=== PATIENT | female | born 1935 | race American Indian/Alaskan Native ===

== ENCOUNTER → 2018-01-21 07:00 | Outpatient (CLI) | payer MEDICARE, OTHER, SELFPAY ==
[2018-01-21 08:06] LABS: Alanine Aminotransferase 37 IU/L (9-52); Albumin 4.3 g/dL (3.5-5.0); Albumin Globulin Ratio 1.1 (1.0-2.8); Alkaline Phosphatase 65 U/L (38-126); Aspartate Aminotransferase 41 IU/L (14-36); Bilirubin Total 0.5 mg/dL (0.2-1.3); Blood Urea Nitrogen 18 mg/dL (7-17); Calcium 9.5 mg/dL (8.4-10.2); Carbon Dioxide 30 mmol/L (22-32); Chloride 103 mmol/L (98-107); Cholesterol 216 mg/dL (140-199); Estimated Glomerular Filt Rate > 60.0 mL/min (>60); Globulin 3.9 g/dL (1.7-4.1); Glucose 94 mg/dL (80-110); HDL Cholesterol 80 mg/dL (40-60); HEMOLYSIS < 15 (0-50); LDL Cholesterol Calculated 112 mg/dL (<100); Potassium 4.6 mmol/L (3.4-5.1); Sodium 143 mmol/L (137-145); Total Protein 8.2 g/dL (6.3-8.2); Triglycerides 121 mg/dL (35-150)
== END ==
PROVIDERS: PCP Internal Medicine; Visit Provider Internal Medicine
DX: E78.2 Mixed hyperlipidemia (principal)
CPT/HCPCS: 36415; 80053; 80061

== ENCOUNTER → 2019-11-23 09:40 | Outpatient (CLI) | payer MEDICARE, OTHER, SELFPAY ==
[2019-11-23 11:36] LABS: Alanine Aminotransferase 83 IU/L (<35); Albumin 4.4 g/dL (3.5-5.0); Alkaline Phosphatase 96 U/L (38-126); Aspartate Aminotransferase 101 IU/L (14-36); BUN Creatinine Ratio 16.2 (6-22); Bilirubin Total 0.6 mg/dL (0.2-1.3); Blood Urea Nitrogen 22 mg/dL (7-17); Calcium 9.6 mg/dL (8.4-10.2); Carbon Dioxide 25 mmol/L (22-32); Chloride 105 mmol/L (98-107); Estimated Glomerular Filt Rate 37.2 mL/min (>60); Globulin 4.4 g/dL (1.7-4.1); Glucose 91 mg/dL (80-110); HEMOLYSIS < 15 (0-50); Potassium 4.8 mmol/L (3.4-5.1); Sodium 139 mmol/L (137-145); Total Protein 8.8 g/dL (6.3-8.2)
== END ==
PROVIDERS: PCP Internal Medicine; Referring Provider Internal Medicine; Visit Provider Internal Medicine
DX: E78.2 Mixed hyperlipidemia (principal); I10 Essential (primary) hypertension; R73.02 Impaired glucose tolerance (oral)
CPT/HCPCS: 36415; 80053

== ENCOUNTER → 2021-02-15 08:51 | Outpatient (CLI) | payer MEDICARE, OTHER, SELFPAY ==
[2021-02-15 10:03] LABS: Alanine Aminotransferase 90 IU/L (<35); Albumin 4.4 g/dL (3.5-5.0); Albumin Globulin Ratio 0.9 (1.0-2.8); Alkaline Phosphatase 92 U/L (38-126); Aspartate Aminotransferase 94 IU/L (14-36); BUN Creatinine Ratio 19.5 (6-22); Bilirubin Total 0.6 mg/dL (0.2-1.3); Blood Urea Nitrogen 25 mg/dL (7-17); Calcium 9.5 mg/dL (8.4-10.2); Carbon Dioxide 25 mmol/L (22-32); Chloride 106 mmol/L (98-107); Cholesterol 197 mg/dL (140-199); Estimated Glomerular Filt Rate 39.8 mL/min (>60); Globulin 4.8 g/dL (1.7-4.1); Glucose 89 mg/dL (80-110); HDL Cholesterol 59 mg/dL (40-60); HEMOLYSIS < 15 (0-50); LDL Cholesterol Calculated 115 mg/dL (<100); Potassium 4.7 mmol/L (3.4-5.1); Sodium 139 mmol/L (137-145); Total Protein 9.2 g/dL (6.3-8.2); Triglycerides 114 mg/dL (35-150)
== END ==
PROVIDERS: PCP Internal Medicine; Referring Provider Internal Medicine; Visit Provider Internal Medicine
DX: E78.2 Mixed hyperlipidemia (principal); I10 Essential (primary) hypertension; N18.31 Chronic kidney disease, stage 3a
CPT/HCPCS: 36415; 80053; 80061

== ENCOUNTER 2022-02-18 19:20 | Emergency (ER) | payer MEDICARE, OTHER, SELFPAY ==
[2022-02-18 19:30] VITALS: PULSE 97; RESP 18; TEMP 36.5; O2SAT 95; BMI 29.0
--- NOTE | 2022-02-18 19:38 | DI.RAD.S_ITS ---
PROCEDURE: XR CHEST 1V INDICATIONS: chest pain TECHNIQUE: One view of the chest was acquired. COMPARISON: [facility], , CHEST 2 VIEW, 05/30/2008, 9:54. FINDINGS: Surgical changes and devices: None. Lungs and pleura: Lungs are clear. No pleural effusions or pneumothorax. Mediastinum: Mediastinal contours appear normal. Heart size is normal. Moderate aortic atherosclerotic calcifications. Probable bilateral calcified hilar lymph nodes are noted, unchanged. Bones and chest wall: No suspicious bony lesions. Overlying soft tissues appear unremarkable. IMPRESSION: No acute cardiopulmonary abnormality. Dictated by: Jaiden Kelly M.D. on 02/18/2022 at 20:05 Approved by: Jaiden Kelly M.D. on 02/18/2022 at 20:06
[2022-02-18 20:13] LABS: Add Manual Diff / Slide Review NO; Basophils Absolute Auto 100 /uL (0-100); Eosinophils Absolute Auto 300 /uL (0-450); Eosinophils Percent Auto 5.9 % (2-4); Hematocrit 39.2 % (36-46); Hemoglobin 13.1 g/dL (12.0-16.0); Lymphocytes Absolute Auto 1500 /uL (1100-4500); Lymphocytes Percent Auto 29.3 % (25-40); Mean Corpuscular HGB Conc 33.5 % (30-36); Mean Corpuscular Hemoglobin 28.2 PG (26-34); Mean Corpuscular Volume 84.3 fL (80-100); Monocytes Absolute Auto 600 /uL (0-900); Monocytes Percent Auto 12.2 % (3-14); Neutrophils Absolute Auto 2600 /uL (1500-7000); Neutrophils Percent Auto 51.6 % (50-75); Platelet Count 268 X10^3/uL (150-400); Red Blood Cell Count 4.65 X10^6/uL (4.0-5.2); Red Cell Distribution Width 14.7 % (11.6-14.8); White Blood Cell Count 5.1 X10^3/uL (4.5-11.0)
[2022-02-18 20:31] LABS: Alanine Aminotransferase 84 IU/L (<35); Albumin 4.3 g/dL (3.5-5.0); Albumin Globulin Ratio 0.8 (1.0-2.8); Alkaline Phosphatase 87 U/L (38-126); Aspartate Aminotransferase 111 IU/L (14-36); BUN Creatinine Ratio 21.1 (6-22); Bilirubin Total 0.4 mg/dL (0.2-1.3); Blood Urea Nitrogen 20 mg/dL (7-17); Calcium 9.1 mg/dL (8.4-10.2); Carbon Dioxide 25 mmol/L (22-32); Chloride 103 mmol/L (98-107); Creatine Kinase 57 U/L (30-135); Estimated Glomerular Filt Rate 59 mL/min (>60); Globulin 5.3 g/dL (1.7-4.1); Glucose 93 mg/dL (80-110); HEMOLYSIS < 15 (0-50); Lipase 273 U/L (23-300); Magnesium 2.6 mg/dL (1.6-2.3); Potassium 3.8 mmol/L (3.4-5.1); Sodium 139 mmol/L (137-145); Total Protein 9.6 g/dL (6.3-8.2)
[2022-02-18 20:41] LABS: Troponin I < 0.012 ng/mL (0.01-0.034)
[2022-02-18 22:06] LABS: Troponin I 0.015 ng/mL (0.01-0.034)
== END 2022-02-18 22:50 | disposition left against medical advice (07) ==
PROVIDERS: Emergency Provider Emergency Medicine; PCP Internal Medicine
DX: R07.9 Chest pain, unspecified (principal)
CPT/HCPCS: 71045; 80053; 82550; 83690; 83735; 84484; 85025; 93005; 93010; 99283

== ENCOUNTER → 2022-03-24 12:41 | Outpatient (CLI) | payer MEDICARE, OTHER, SELFPAY ==
[2022-03-24 13:47] LABS: COVID19 -Nasal RAPID Negative (Negative)
--- NOTE | 2022-03-24 14:19 | PM.TREADMILL ---
Cardiac Stress Test Report Referral & Results Date Patient Seen: 03/24/22 Requesting provider: Ezequiel Valdez Indication: Chest pain Rest ECG: Unremarkable Procedure Note: Today following both written and verbal informed consent, the patient was exercised according to a standard Santos protocol. The patient exercised for a total of 3 minutes achieving a maximum heart rate of 134. Patient's maximum systolic blood pressure was 188. This was an estimated 4.6 MET's. There was no ST-T segment changes identified Patient with occasional PVCs. Normal heart rate and blood pressure response to exercise Function aerobic impairment difficult to be accurate given patient's age but appears to be at least 0 on the sedentary scale perhaps better than that Impression: No evidence of ischemia. Patient reassured. Low likelihood of cardiac disease based on clinical picture prior to test as well meaning this is unlikely to be situation with any coronary ischemia as a cause of patient's symptoms. Please note: Actual ECG tracings can be found in the PACS system.
== END ==
PROVIDERS: PCP Internal Medicine; Referring Provider Internal Medicine; Visit Provider Internal Medicine
DX: R07.9 Chest pain, unspecified (principal); Z20.822 Contact with and (suspected) exposure to COVID-19
CPT/HCPCS: 87635; 93016; 93017; 93018

== ENCOUNTER → 2023-09-08 10:21 | Outpatient (CLI) | payer MEDICARE, OTHER, SELFPAY ==
[2023-09-08 10:52] LABS: Add Manual Diff / Slide Review NO; Basophils Absolute Auto 100 /uL (0-100); Basophils Percent Auto 1.1 % (0-2); Eosinophils Absolute Auto 200 /uL (0-450); Eosinophils Percent Auto 3.1 % (2-4); Hemoglobin 13.2 g/dL (12.0-16.0); Lymphocytes Absolute Auto 1100 /uL (1100-4500); Lymphocytes Percent Auto 19.9 % (25-40); Mean Corpuscular HGB Conc 33.8 % (30-36); Mean Corpuscular Hemoglobin 28.3 PG (26-34); Mean Corpuscular Volume 83.8 fL (80-100); Monocytes Absolute Auto 500 /uL (0-900); Monocytes Percent Auto 9.7 % (3-14); Neutrophils Absolute Auto 3600 /uL (1500-7000); Neutrophils Percent Auto 66.2 % (50-75); Platelet Count 273 X10^3/uL (150-400); Red Blood Cell Count 4.66 X10^6/uL (4.0-5.2); Red Cell Distribution Width 14.3 % (11.6-14.8); White Blood Cell Count 5.4 X10^3/uL (4.5-11.0)
[2023-09-08 11:22] LABS: Alanine Aminotransferase 52 IU/L (<35); Albumin 4.2 g/dL (3.5-5.0); Albumin Globulin Ratio 0.9 (1.0-2.8); Alkaline Phosphatase 95 U/L (38-126); Aspartate Aminotransferase 76 IU/L (14-36); Bilirubin Total 0.6 mg/dL (0.2-1.3); Blood Urea Nitrogen 26 mg/dL (7-17); Calcium 9.3 mg/dL (8.4-10.2); Carbon Dioxide 27 mmol/L (22-32); Chloride 102 mmol/L (98-107); Estimated Glomerular Filt Rate 40 mL/min (>60); Globulin 4.8 g/dL (1.7-4.1); Glucose 95 mg/dL (80-110); HEMOLYSIS < 15 (0-50); Potassium 4.9 mmol/L (3.4-5.1); Sodium 136 mmol/L (137-145)
== END ==
LOC: LAB 10:21
PROVIDERS: PCP Internal Medicine; Referring Provider Internal Medicine; Visit Provider Internal Medicine
DX: E78.2 Mixed hyperlipidemia (principal); N18.31 Chronic kidney disease, stage 3a; D64.9 Anemia, unspecified; I12.9 Hypertensive chronic kidney disease with stage 1 through stage 4 chronic kidney disease, or unspecified chronic kidney disease
CPT/HCPCS: 36415; 80053; 85025

== ENCOUNTER 2024-01-21 18:13 | Emergency (ER) | payer MEDICARE, OTHER, SELFPAY ==
[2024-01-21] VITALS (21 sets, daily range): BP systolic 139–190; BP diastolic 60–93; PULSE 83–119; RESP 18–34; TEMP 36.9; O2SAT 92–98; BMI 28.3
--- NOTE | 2024-01-21 18:39 | DI.CT.S_ITS ---
PROCEDURE: CT HEAD/BRAIN WO CON INDICATIONS: Fall hit head on blood thinners TECHNIQUE: Noncontrast 4.5 mm thick angled axial sections acquired from the foramen magnum to the vertex, with coronal and sagittal reformats. For radiation dose reduction, the following was used: automated exposure control, adjustment of mA and/or kV according to patient size. COMPARISON: None. FINDINGS: Image quality: Diagnostic. CSF spaces: Basal cisterns are patent. Small volume of right posterior subarachnoid blood (series 5, image 31). The ventricles are symmetric in size and shape. Brain: No intracranial bleeds or masses. There is cerebral volume loss for age, with resultant ventricular and sulcal prominence. There are periventricular and deep white matter chronic small vessel ischemic changes. There is intracranial internal carotid artery atherosclerosis. Skull and face: Large periorbital hematoma on the left, without underlying fracture. No retro-orbital hematoma. Sinuses: Visualized sinuses and mastoids are clear. IMPRESSION: Small volume subarachnoid hemorrhage along the posterior right convexity. Large left periorbital hematoma without underlying fracture. Findings discussed with Dr. Oden at time of dictation. Dictated by: Talon Bain M.D. on 01/21/2024 at 19:20 Approved by: Talon aBin M.D. on 01/21/2024 at 19:22
--- NOTE | 2024-01-21 18:39 | DI.CT.S_ITS ---
PROCEDURE: CT CERVICAL SPINE WO CON INDICATIONS: Fall hit head on blood thinners TECHNIQUE: Noncontrast 3 mm thick sections acquired from the skull base to the T4 level. Sagittal and coronal reformats were then constructed. For radiation dose reduction, the following was used: automated exposure control, adjustment of mA and/or kV according to patient size. COMPARISON: None. FINDINGS: Image quality: Excellent. Bones: No fractures or dislocations. Visualized superior ribs are intact. Soft tissues: Prevertebral soft tissues are normal in thickness. No paravertebral hematomas. No apical pneumothoraces. 1 cm left thyroid nodule, which does not require dedicated follow-up per consensus guidelines. IMPRESSION: No displaced fracture or traumatic subluxation. Dictated by: Talon Bain M.D. on 01/21/2024 at 19:22 Approved by: Talon Bain M.D. on 01/21/2024 at 19:24
--- NOTE | 2024-01-21 19:51 | ED_ITS ---
HPI - Fall General Chief Complaint: Fall Stated Complaint: Fall, hit head, blood thinners Time Seen by Provider: 01/21/24 18:38 Source: patient Mode of arrival: Ambulatory History of Present Illness HPI Narrative: Patient is an 88-year-old female. The initial stated complaint stated that she was on blood thinners however upon further evaluation the patient is only on aspirin. She was here for evaluation of injuries that she sustained when she states she was out for a walk with her daughter and their dog. She states that she was walking down an alley way. She was trying to cross the alleyway and accidentally tripped over a grassy area in the center of the alley. She fell forward. She did hit her head. No loss of consciousness. No neck pain. She did sustain some abrasions over the left eye. She did hit her head. No extr emity injuries. She arrived by private vehicle. Related Data Home Medications Medication Instructions Recorded Confirmed aspirin 81 mg tablet,delayed 81 mg PO DAILY 05/26/22 09/08/23 release Previous Rx's Medication Instructions Recorded nifedipine 60 mg tablet,extended 60 mg PO DAILY #90 tabs 07/27/23 release simvastatin 20 mg tablet 20 mg PO DAILY #90 tabs 08/11/23 Allergies Allergy/AdvReac Type Severity Reaction Status Date / Time iodine Allergy Unknown Rash Verified 09/08/23 09:56 Review of Systems Review of Systems Narrative: See HPI Patient History Medical History Transaminitis Chronic renal failure, stage 3a Mixed hyperlipidemia (01/10/16) Chronic obstructive pulmonary disease Essential hypertension Diverticulosis of large intestine (06/13/11) Impaired glucose tolerance (06/13/11) Surgical History (Updated 01/25/18 @ 13:21 by Shaina Conner) History of left salpingo-oophorectomy History of right salpingo-oophorectomy Status post appendectomy Family History (Updated 01/25/18 @ 13:23 by Shaina Conner) Other Colon cancer Social History marital status: number of children: 5 household members: children lives independently: Yes caregiver/support person: No housing: house pets and animals: Yes education level: college occupational status: other (Retired.) Previous occupational history: Mental Health Counselor tk/orthodox: [employer] travel history: over 6 months ago ([place]) leisure activities: reading, volunteer work and other (Speaks at classes.) Smoking Status: Former smoker Tobacco: How many years used: 25 Smokeless tobacco user: other (Cigarettes) quit status: quit date established (1979) second hand exposure: No alcohol intake: former (Quit in 1985, but now has 2 beers daily) substance use type: does not use Smoking Status: Former smoker alcohol intake frequency: 3 or more drinks per day Substance Use Type: does not use Exam Initial Vital Signs Initial Vital Signs: Vital Signs Pulse Rate 93 H 01/21/24 18:26 Pulse Oximetry 97 01/21/24 18:26 Const General: cooperative, comfortable and No ill appearing HENMT Head: normal to inspection and normocephalic Eyes Periorbital: periorbital findings abnormal left periorbital swelling and periorbital ecchymosis Sclera: sclerae normal Pupils: PERRL EOM: EOM intact bilaterally Resp Effort & Inspection: normal respiratory effort Cardio Rate: regular rate Back/Spine/Pelvis Cervical Spine: No cervical spinal tenderness Skin Other: Contusion around left eye Neuro General: patient alert, patient awake and patient oriented x3 Extrem General: normal to inspection and capillary refill normal Scores Iraqi CT Head Rule Age <16 years old: No Patient on blood thinners: No Seizure after injury: No Exclusion: Patient NOT Excluded, Proceed to next steps GCS < 15 at 2 hr post trauma: No Suspected open or depressed skull fracture: No Any sign of basilar skull fracture (hemotympanum, raccoon eyes, Rollins's sign, CSF john-/rhinorrhea): No Two or more episodes of vomiting: No Age greater or equal to 65 years: Yes Retrograde amnesia to the event greater or equal to 30 min: No Dangerous Mechanism (pedestrian vs. mv, occupant ejected from mv, fall from >3 ft or > 5 stairs): No Recommendation: Consider CT. The Iraqi Head CT Rule cannot rule out need for Imaging. GCS [place] coma scale eye opening: Spontaneous Kristi coma scale verbal response: Orientated [place] coma scale motor response: Obey commands Kristi coma scale total score: 15 Nexus Score for C-Spine Focal Neurologic deficit present: No Midline spinal tenderness present: No Altered level of conciousness present: No Intoxication present: No Distracting Injury Present: No Nexus Criteria for C-spine: 0 Course Orders Ordered: ED Orders 01/21/24 18:39 CT cervical spine wo con Stat CT head/brain wo con Stat 01/21/24 22:45 CT head/brain wo con Stat Vital Signs Vital signs: Vital Signs - 8 hr 01/21/24 18:26 01/21/24 18:27 01/21/24 18:27 Temperature Pulse Rate 93 H 89 Respiratory Rate Blood Pressure 177/80 H Pulse Oximetry 97 97 Oxygen Delivery Method 01/21/24 18:28 01/21/24 18:30 01/21/24 18:31 Temperature 98.4 F Pulse Rate 83 93 H Respiratory Rate 18 29 H Blood Pressure 177/80 H 165/93 H Pulse Oximetry 96 97 Oxygen Delivery Method Room Air 01/21/24 18:31 01/21/24 19:02 01/21/24 19:03 Temperature Pulse Rate 95 H 99 H 98 H Respiratory Rate 27 H 25 H 18 Blood Pressure Pulse Oximetry 97 92 97 Oxygen Delivery Method 01/21/24 19:03 01/21/24 19:30 01/21/24 19:31 Temperature Pulse Rate 93 H Respiratory Rate 25 H Blood Pressure 190/78 H 179/80 H Pulse Oximetry 96 Oxygen Delivery Method 01/21/24 19:31 01/21/24 19:59 01/21/24 19:59 Temperature Pulse Rate 95 H 119 H Respiratory Rate 28 H 21 Blood Pressure 139/60 Pulse Oximetry 97 97 Oxygen Delivery Method Room Air 01/21/24 20:00 01/21/24 20:00 01/21/24 20:30 Temperature Pulse Rate 113 H 97 H Respiratory Rate 22 29 H Blood Pressure 171/78 H Pulse Oximetry 98 98 Oxygen Delivery Method 01/21/24 20:31 01/21/24 20:31 01/21/24 21:00 Temperature Pulse Rate 98 H 94 H Respiratory Rate 34 H 21 Blood Pressure 159/77 H Pulse Oximetry 98 97 Oxygen Delivery Method 01/21/24 21:00 01/21/24 21:30 01/21/24 21:39 Temperature Pulse Rate 96 H 94 H Respiratory Rate 32 H 19 Blood Pressure 178/77 H Pulse Oximetry 98 98 Oxygen Delivery Method Room Air 01/21/24 21:39 01/21/24 22:00 01/21/24 22:01 Temperature Pulse Rate 88 Respiratory Rate 26 H Blood Pressure 183/75 H 166/74 H Pulse Oximetry 97 Oxygen Delivery Method 01/21/24 22:01 01/21/24 22:30 01/21/24 22:30 Temperature Pulse Rate 89 87 Respiratory Rate 22 22 Blood Pressure 177/78 H Pulse Oximetry 96 96 Oxygen Delivery Method 01/21/24 22:53 01/21/24 22:53 01/21/24 23:00 Temperature Pulse Rate 89 Respiratory Rate 31 H Blood Pressure 181/76 H 175/79 H Pulse Oximetry 97 Oxygen Delivery Method 01/21/24 23:00 Temperature Pulse Rate 91 H Respiratory Rate 22 Blood Pressure Pulse Oximetry 98 Oxygen Delivery Method Room Air MDM - Fall Imaging Data CT - cervical spine: Radiologist's Impression: PROCEDURE: CT CERVICAL SPINE WO CON INDICATIONS: Fall hit head on blood thinners TECHNIQUE: Noncontrast 3 mm thick sections acquired from the skull base to the T4 level. Sagittal and coronal reformats were then constructed. For radiation dose reduction, the following was used: automated exposure control, adjustment of mA and/or kV according to patient size. COMPARISON: None. FINDINGS: Image quality: Excellent. Bones: No fractures or dislocations. Visualized superior ribs are intact. Soft tissues: Prevertebral soft tissues are normal in thickness. No paravertebral hematomas. No apical pneumothoraces. 1 cm left thyroid nodule, which does not require dedicated follow-up per consensus guidelines. IMPRESSION: No displaced fracture or traumatic subluxation. CT scan - head: Radiologist's Impression: PROCEDURE: CT HEAD/BRAIN WO CON INDICATIONS: Fall hit head on blood thinners TECHNIQUE: Noncontrast 4.5 mm thick angled axial sections acquired from the foramen magnum to the vertex, with coronal and sagittal reformats. For radiation dose reduction, the following was used: automated exposure control, adjustment of mA and/or kV according to patient size. COMPARISON: None. FINDINGS: Image quality: Diagnostic. CSF spaces: Basal cisterns are patent. Small volume of right posterior subarachnoid blood (series 5, image 31). The ventricles are symmetric in size and shape. Brain: No intracranial bleeds or masses. There is cerebral volume loss for age, with resultant ventricular and sulcal prominence. There are periventricular and deep white matter chronic small vessel ischemic changes. There is intracranial internal carotid artery atherosclerosis. Skull and face: Large periorbital hematoma on the left, without underlying fracture. No retro-orbital hematoma. Sinuses: Visualized sinuses and mastoids are clear. IMPRESSION: Small volume subarachnoid hemorrhage along the posterior right convexity. Large left periorbital hematoma without underlying fracture. Findings discussed with Dr. Oden at time of dictation. Repeat head CT: Radiologist's Impression: PROCEDURE: CT HEAD/BRAIN WO CON INDICATIONS: Repeat for subarachnoid hemorrhage TECHNIQUE: Noncontrast 4.5 mm thick angled axial sections acquired from the foramen magnum to the vertex, with coronal and sagittal reformats. For radiation dose reduction, the following was used: automated exposure control, adjustment of mA and/or kV according to patient size. COMPARISON: [facility], CT, CT HEAD/BRAIN WO CON, 01/21/2024, 18:43. FINDINGS: Image quality: Diagnostic. CSF spaces: Basal cis high [place] is of prior ago carotid angiogram anterior a graph again by sophia are patent. No extra-axial fluid collections. The ventricles are symmetric in size and shape. Brain: Redemonstration of small volume subarachnoid hemorrhage involving the right posterior occipital lobe. No significant interval change. There is cerebral volume loss for age, with resultant ventricular and sulcal prominence. There are periventricular and deep white matter chronic small vessel ischemic changes. There is intracranial internal carotid artery atherosclerosis. Skull and face: Redemonstration of large left periorbital soft tissue hematoma without underlying calvarial fractures. Calvarium and visualized facial bones appear intact, without suspicious lesions. Sinuses: Visualized sinuses and mastoids are clear. IMPRESSION: Stable appearance of small volume subarachnoid hemorrhage of the posterior right convexity. Redemonstration of large left periorbital hematoma without underlying calvarial fracture. [facility] Narrative Medical decision making narrative: Patient does have a contusion around the left eye however on the CT scan there were no underlying fractures. Extraocular muscles were intact and pupils were equal round and reactive. I did discuss these findings with the patient. Symptoms should start to improve over the next couple days however would suspect quite a bit of swelling around her eye. Initial head CT showed a small volume subarachnoid hemorrhage most likely from the fall which brought her to the emergency department this evening. Discussed the case with Neurosurgery at [facility] who recommended a repeat head CT in 4 hours which was performed. There was no change in the subarachnoid. Because of this patient will be discharged home with instructions to follow-up with her primary doctor. She was advised to stop taking the aspirin. She reports no other injuries from the event and no other injuries were found on the exam. She was given return precautions and follow-up instructions. She expressed understanding and agreement. Discharge Plan Departure Patient Disposition: Home Clinical Impression: Subarachnoid hemorrhage, Contusion of face Instructions: DI for Stroke-Subarachnoid Hemorrhage Activity Restrictions/Additional Instructions: I do recommend that you stop taking your aspirin. You can continue taking the rest of your medications as directed. Contact your primary doctor for a follow- up. Return to the emergency department for new or worsening symptoms. Prescriptions: No Action nifedipine 60 mg tablet extended release 60 mg PO DAILY Qty: 90 3RF simvastatin 20 mg tablet 20 mg PO DAILY Qty: 90 2RF aspirin 81 mg tablet,delayed release (DR/EC) 81 mg PO DAILY Referrals: Ezequiel Valdez MD [Primary Care Provider] - Stand Alone Forms: Patient Portal/API
--- NOTE | 2024-01-21 22:45 | DI.CT.S_ITS ---
PROCEDURE: CT HEAD/BRAIN WO CON INDICATIONS: Repeat for subarachnoid hemorrhage TECHNIQUE: Noncontrast 4.5 mm thick angled axial sections acquired from the foramen magnum to the vertex, with coronal and sagittal reformats. For radiation dose reduction, the following was used: automated exposure control, adjustment of mA and/or kV according to patient size. COMPARISON: [facility], CT, CT HEAD/BRAIN WO CON, 01/21/2024, 18:43. FINDINGS: Image quality: Diagnostic. CSF spaces: Basal cis high [place] is of prior ago carotid angiogram anterior a graph again by sophia are patent. No extra-axial fluid collections. The ventricles are symmetric in size and shape. Brain: Redemonstration of small volume subarachnoid hemorrhage involving the right posterior occipital lobe. No significant interval change. There is cerebral volume loss for age, with resultant ventricular and sulcal prominence. There are periventricular and deep white matter chronic small vessel ischemic changes. There is intracranial internal carotid artery atherosclerosis. Skull and face: Redemonstration of large left periorbital soft tissue hematoma without underlying calvarial fractures. Calvarium and visualized facial bones appear intact, without suspicious lesions. Sinuses: Visualized sinuses and mastoids are clear. IMPRESSION: Stable appearance of small volume subarachnoid hemorrhage of the posterior right convexity. Redemonstration of large left periorbital hematoma without underlying calvarial fracture. Dictated by: Maximo Downs M.D. on 01/21/2024 at 23:07 Approved by: Maximo Downs M.D. on 01/21/2024 at 23:11
== END 2024-01-21 23:39 | disposition home or self-care (01) ==
PROVIDERS: Emergency Provider Emergency Medicine; PCP Internal Medicine
DX: S06.6X0A Traumatic subarachnoid hemorrhage without loss of consciousness, initial encounter (principal); S00.83XA Contusion of other part of head, initial encounter; W01.0XXA Fall on same level from slipping, tripping and stumbling without subsequent striking against object, initial encounter; Z79.82 Long term (current) use of aspirin
CPT/HCPCS: 70450; 72125; 99281; 99284

== ENCOUNTER → 2024-01-28 09:13 | Outpatient (CLI) | payer MEDICARE, OTHER, SELFPAY ==
--- NOTE | 2024-01-28 09:15 | DI.ECHO.S_ITS ---
[place] [facility] : : [address] : : [place] : : [id number] : : Phone: [phone] Echocardiogram Report + + :Name: EMY KOENIG I Study Date: 01/28/2024 Height: 59 in : :[facility] ReadingLocation: Weight: 128 lb : : Gender: Female BSA: 1.5 m2 : :: 1935 Age: 88 yrs BP: 155/69 mmHg: :Reason For Study: Murmur : :Ordering Physician: MARCELA, : :PHUC Performed By: Maxine Scott : :Referring: PHUC MEDRANO : + + Interpretation Summary Normal sinus rhythm. Normal LV size and wall thickness; normal wall motion and LV systolic function. EF is 60-65%. Severe LA enlargement; otherwise normal chamber sizes. 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 Left coronary leaflet demonstrates adequate mobility. Severe mitral annular calcification. No prior study available for comparison. Recommend non-urgent cardiology consult to discuss prognosis of moderate aortic stenosis. Procedure: A two-dimensional transthoracic echocardiogram with color flow and Doppler was performed. The study quality was technically adequate. There is no prior echocardiogram noted for this patient. The heart rate ranged between 75-80 bpm during the study. Left Ventricle: The left ventricle is normal in size and wall thickness. The ejection fraction is estimated to be 60-65%. Diastolic function could not be accurately assessed due to confounding valvular disease. Right Ventricle: The right ventricle grossly appears normal in size with probable normal systolic function. Atria: The left atrium is severely dilated. Right atrial size is normal. The interatrial septum grossly appears intact with no obvious evidence for an atrial septal defect. Mitral Valve: The mitral valve leaflets appear moderately thickened, but open well. There is moderate to severe mitral annular calcification. There is no mitral regurgitation noted. Aortic Valve: The aortic valve is moderately calcified. The aortic valve area is 1.0 centimeters squared by planimetry. The calculated aortic valve area is 1.0 cm2. The peak aortic velocity is 3.4 m/sec. The aortic valve mean gradient is 27 mmHg. No aortic regurgitation is present. Tricuspid Valve: The tricuspid valve leaflets are thickened and/or calcified, but open well. There is mild tricuspid regurgitation. The right ventricular systolic pressure is estimated to be at least 38 mmHg based on an estimated right atrial pressure of 3 mm Hg. Pulmonic Valve: The pulmonic valve is not well seen, but is grossly normal. There is no pulmonic valvular regurgitation. Great Vessels: The aortic root is normal size. The ascending aorta could not be visualized. The aortic arch is normal in size. The IVC is of normal diameter and collapses greater than 50% with a sniff. This suggests a low right atrial pressure of 3 mm Hg. Pericardium/ Pleura There is no pericardial effusion. There is no pleural effusion. MMode/2D Measurements & Calculations LVIDd: 4.6 cm LVOT diam: 1.9 cm LVIDs: 2.1 cm Ao root diam: 3.1 cm FS: 53.7 % Ao Arch Diam (Prox Trans): 2.3 cm EPSS: 0.52 cm IVSd: 1.1 cm LVPWd: 0.80 cm LV lai. diameter/BSA (cm/m^2): 3.0 LV sys. diameter/BSA (cm/m^2): 1.4 LA A2 area: 22.6 cm2 RA long axis: 5.0 cm LA A4 area: 23.8 cm2 RA area: 13.2 cm2 LA length (vol): 5.8 cm RA vol: 29.4 ml LA vol: 78.3 ml RA : 19.3 ml/m2 LA vol index: 51.3 ml/m2 IVC diam: 1.5 cm Doppler Measurements & Calculations Ao V2 max: 340.4 cm/sec LVOT Max Daniel: 101.4 cm/sec Ao V2 mean: 244.6 cm/sec LV V1 max P.1 mmHg Ao max P.3 mmHg LV V1 VTI: 29.4 cm Ao mean P.3 mmHg JAILENE(I,D): 0.97 cm2 Ao V2 VTI: 81.9 cm JAILENE(V,D): 0.81 cm2 sev ratio: 0.36 JAILENE indexed to BSA (cm^2/m^2): 0.64 MV E max daniel: 95.4 cm/sec TR max daniel: 295.8 cm/sec MV A max daniel: 152.2 cm/sec TR max P.0 mmHg MV E/A: 0.63 PA V2 max: 98.9 cm/sec Med Peak E' Daniel: 2.8 cm/sec PA V2 mean: 59.6 cm/sec E/E' med: 33.8 PA mean P.8 mmHg Lat Peak E' Daniel: 2.9 cm/sec PA pr(Accel): 10.5 mmHg E/E' lat: 32.5 E/e' average: 33.1 MV dec time: 0.47 sec MVA(VTI): 2.1 cm2 MV V2 mean: 91.3 cm/sec SV(LVOT): 79.8 ml MV mean P.8 mmHg MV V2 VTI: 37.9 cm Electronically signed by: Raisa Lewis M.D. on Reading Physician:01/29/2024 12:52 AM
== END ==
PROVIDERS: PCP Internal Medicine; Referring Provider Family Medicine; Visit Provider Family Medicine
DX: I08.1 Rheumatic disorders of both mitral and tricuspid valves (principal); R01.1 Cardiac murmur, unspecified
CPT/HCPCS: 93306

== ENCOUNTER 2024-07-02 07:42 | Emergency (ER) | payer MEDICARE, SELFPAY ==
[2024-07-02 07:47] VITALS: BP 161/68; PULSE 93; RESP 18; TEMP 36.6; O2SAT 97; BMI 28.2
--- NOTE | 2024-07-02 07:56 | DI.RAD.S_ITS ---
PROCEDURE: XR ABDOMEN 1V INDICATIONS: abd pain and constipation TECHNIQUE: One view of the abdomen acquired. COMPARISON: None. FINDINGS: Surgical changes and devices: None. Bowel: Bowel gas pattern is normal. Large right colonic fecal load. No free air. Soft tissues: Multiple calcified gallstones. Advanced aorta iliac atherosclerotic calcifications. Visualized solid organ contours appear normal in size. Bones: No suspicious bony lesions. IMPRESSION: Normal bowel gas pattern with large right colonic fecal load. Dictated by: Addison Marti M.D. on 07/02/2024 at 8:25 Approved by: Addison Marti M.D. on 07/02/2024 at 8:26
== END 2024-07-02 11:18 | disposition left against medical advice (07) ==
PROVIDERS: Emergency Provider Emergency Medicine; PCP Internal Medicine
DX: R10.32 Left lower quadrant pain (principal)
CPT/HCPCS: 74018; 99281

== ENCOUNTER → 2024-08-01 15:17 | Outpatient (CLI) | payer MEDICARE, OTHER, SELFPAY ==
--- NOTE | 2024-08-01 15:24 | DI.RAD.S_ITS ---
PROCEDURE: XR CERVICAL SPINE 4V OR 5V INDICATIONS: BACK PAIN TECHNIQUE: Five views of the cervical spine acquired. COMPARISON: None. FINDINGS: Cervical spine curvature and alignment: Normal. Bones: There are no osseous abnormalities. Disc spaces: Mild C4-5, severe C5-6 and moderate C6-7 and mild C7-T1 degenerative disc disease appreciated. Oblique view show severe left C4-5 and right C3-4 and C4-5 IV foraminal narrowing due to degenerative spurs. Soft tissues: No soft tissue swelling, calcification or mass. IMPRESSION: Degeneration Dictated by: Ezequiel Rodriguez M.D. on 08/02/2024 at 9:22 Approved by: Ezequiel Rodriguez M.D. on 08/02/2024 at 9:23
--- NOTE | 2024-08-01 15:24 | DI.RAD.S_ITS ---
PROCEDURE: XR LUMBAR SPINE 2-3V INDICATIONS: BACK PAIN TECHNIQUE: 3 views of the lumbar spine were acquired. COMPARISON: None. FINDINGS: Lumbar spine curvature and alignment: Normal. Bones: Mild biconcavity of the visualized lower thoracic and upper lumbar endplates suggests osteoporosis. No brain compression fracture. Disc spaces: Moderate L5-S1 degenerative disc and facet disease noted. There is moderate degenerative facet disease L4-5. Soft tissues: Right upper quadrant calcifications are poorly visualized could indicate gallstones or right renal stones IMPRESSION: Degeneration. Potential gallstones or renal stones. Possible osteoporosis Dictated by: Ezequiel Rodriguez M.D. on 08/02/2024 at 9:16 Approved by: Ezequiel Rodriguez M.D. on 08/02/2024 at 9:18
--- NOTE | 2024-08-01 15:24 | DI.RAD.S_ITS ---
PROCEDURE: XR THORACIC SPINE 2V INDICATIONS: BACK PAIN TECHNIQUE: 3 views of the thoracic spine were acquired. COMPARISON: None. FINDINGS: Thoracic spine curvature and alignment: There is mild accentuation of the normal thoracic curve due to minimal chronic wedging of all the upper midthoracic vertebral bodies Bones: Mild wedging upper midthoracic vertebral bodies may reflect chronic osteoporosis Disc spaces: Mild degenerative disc disease seen throughout the thoracic spine Soft tissues: No soft tissue swelling, calcification or mass. IMPRESSION: Mild degenerative disc disease throughout the thoracic spine Mild chronic wedging upper midthoracic vertebral body suspect chronic osteoporosis Dictated by: Ezequiel Rodriguez M.D. on 08/02/2024 at 9:27 Approved by: Ezequiel Rodriguez M.D. on 08/02/2024 at 9:28
== END ==
PROVIDERS: PCP Internal Medicine; Referring Provider Family Medicine; Visit Provider Family Medicine
DX: M50.321 Other cervical disc degeneration at C4-C5 level (principal); M48.02 Spinal stenosis, cervical region; M51.34 Other intervertebral disc degeneration, thoracic region; M47.816 Spondylosis without myelopathy or radiculopathy, lumbar region; M47.817 Spondylosis without myelopathy or radiculopathy, lumbosacral region; M51.379 Other intervertebral disc degeneration, lumbosacral region without mention of lumbar back pain or lower extremity pain
CPT/HCPCS: 72050; 72070; 72100

== ENCOUNTER → 2024-08-26 09:44 | Outpatient (CLI) | payer MEDICARE, OTHER, SELFPAY ==
--- NOTE | 2024-08-26 09:46 | DI.CT.S_ITS ---
PROCEDURE: CT ABDOMEN PELVIS W CON INDICATIONS: MONOCLONAL GAMMOPATHY TECHNIQUE: After the administration of intravenous contrast, axial sections acquired from the lung bases to the pubic symphysis. Coronal and sagittal reformats were performed. For radiation dose reduction, the following was used: automated exposure control, adjustment of mA and/or kV according to patient size. COMPARISON: [facility], CR, XR ABDOMEN 1V, 07/02/2024, 7:53. FINDINGS: Image quality: Diagnostic. Lower Chest: No significant findings. ABDOMEN: Liver: No solid mass. Several water density hepatic cysts are present. Gallbladder: Calcified multiple angular gallstones are present within the gallbladder lumen but no biliary distension or gallbladder inflammation is associated. At the upper aspect of the gallbladder fossa there is a rounded radiolucency with faint peripheral calcification, of uncertain etiology and clinical significance. This could represent an unusual superior recess of the gallbladder containing a peripherally calcified large gallstone. It might represent a biliary ductal congenital anomaly, but no solid soft tissue component is identified. Biliary ducts: No biliary dilation. Pancreas: No ductal dilation. Spleen: Size is within normal limits. Adrenal Glands: No adrenal nodules. Kidneys and Ureters: No hydronephrosis. No solid mass. No complex renal cystic lesion which requires follow up. Stomach and Bowel: Normal colonic caliber, without significant wall thickening. Peritoneum: No abnormal intraperitoneal fluid. No free air. Ventral Wall: No significant ventral hernia. Abdominal Nodes: No retroperitoneal or mesenteric adenopathy by size criteria. Vessels: Aorta and inferior vena cava are normal in size. PELVIS: Pelvic Organs: Unremarkable. Bladder: No bladder wall thickening, accounting for underdistention. Pelvic Nodes: No enlarged lymph nodes. Miscellaneous: No inguinal hernias are seen. Bones: No aggressive osseous abnormality. IMPRESSION: Gallbladder fossa findings as discussed above, no acute disease. No adenopathy or marrow space disease identified. Benign-appearing hepatic and renal cortical cysts. No definite acute disease. Dictated by: Sheldon Felton M.D. on 08/27/2024 at 13:23 Approved by: Sheldon Felton M.D. on 08/27/2024 at 13:29
[2024-08-26 10:15] LABS: Estimated Glomerular Filt Rate 55 mL/min (>60)
== END ==
PROVIDERS: Radiology Diagnostic Radiology; PCP Internal Medicine; Referring Provider Family Medicine; Visit Provider Family Medicine
DX: D47.2 Monoclonal gammopathy (principal); K76.89 Other specified diseases of liver; K80.20 Calculus of gallbladder without cholecystitis without obstruction
CPT/HCPCS: 36415; 74177; 82565; Q9967

== ENCOUNTER → 2024-09-01 10:52 | Outpatient (CLI) | payer MEDICARE, OTHER, SELFPAY ==
--- NOTE | 2024-09-01 10:53 | DI.US.S_ITS ---
PROCEDURE: US RENAL COMPLETE INDICATIONS: CKD TECHNIQUE: Real-time scanning was performed of the kidneys and bladder, with image documentation. COMPARISON: [facility], CT, CT ABDOMEN PELVIS W CON, 08/26/2024, 11:03. FINDINGS: Kidneys: Kidneys are normal in size. Right kidney measures 9.6 cm long; left kidney measures 10.5 cm long. Right renal cortical thickness is 1.5 cm; left renal cortical thickness is 1.7 cm. Renal cortical echotexture is normal. No hydronephrosis or nephrolithiasis. No suspicious solid mass lesions. Bladder: Pre-void bladder volume is 7.6 mL. Post-void residual is 0 mL. Pre-void images demonstrate no intraluminal masses or stones. On pre-void images, neither ureteral jets are noted with color Doppler interrogation. (Of note, ureteral jets may not be detectable in up to 25% of cases due to insufficient differences in specific gravity between ureteral and bladder urine). Miscellaneous: No free pelvic fluid. Peripherally calcified focus at the inferior right hepatic lobe measuring 2.4 x 2.1 x 2.1 cm. IMPRESSION: Right renal simple cyst measuring 6.4 cm. Kidneys are otherwise normal in appearance. Peripherally calcified lesion at the inferior right hepatic lobe measuring 2.4 cm, likely corresponding to periphery calcified focus adjacent to the gallbladder on CT. This is better evaluated on prior CT. Dictated by: Xavier Marc M.D. on 09/01/2024 at 13:13 Approved by: Xavier Marc M.D. on 09/01/2024 at 13:17
== END ==
LOC: US 10:53
PROVIDERS: PCP Internal Medicine; Referring Provider Family Medicine; Visit Provider Family Medicine
DX: N18.31 Chronic kidney disease, stage 3a (principal); N28.1 Cyst of kidney, acquired; K76.9 Liver disease, unspecified
CPT/HCPCS: 76770

== ENCOUNTER 2024-10-14 09:21 | Emergency (ER) | payer MEDICARE, OTHER, SELFPAY ==
[2024-10-14] VITALS (8 sets, daily range): BP systolic 144–173; BP diastolic 69–85; PULSE 66–88; RESP 16; TEMP 36.3–36.9; O2SAT 86–99; BMI 27.2
--- NOTE | 2024-10-14 09:32 | ED_ITS ---
HPI - Fall General Chief Complaint: Extremity Injury, Lower Stated Complaint: Fell; LT leg pain and bump on head Time Seen by Provider: 10/14/24 09:25 History of Present Illness HPI Narrative: Patient here with daughter. Had witnessed fall this morning. Patient was getting ready for a walk and their pet dog was very excited and bumped into her lateral left knee causing patient to follow up backwards. Hitting her head. Patient is not on blood thinners other than aspirin. No loss of consciousness no nausea or vomiting no vision changes. Patient is able stand and bear weight. Parents removed. Related Data Home Medications Medication Instructions Recorded Confirmed aspirin 81 mg tablet,delayed 81 mg PO DAILY 05/26/22 01/29/24 release Previous Rx's Medication Instructions Recorded simvastatin 20 mg tablet 20 mg PO DAILY #90 tabs 05/02/24 nifedipine 60 mg tablet,extended 60 mg PO DAILY #90 tabs 08/02/24 release Allergies Allergy/AdvReac Type Severity Reaction Status Date / Time iodine Allergy Unknown Rash Verified 07/02/24 07:51 Review of Systems Review of Systems Narrative: GENERAL: Negative chills, fatigue, malaise, fever, sweats. HEENT: Negative sinus pain, ear pain, sore throat RESPIRATORY: Negative dyspnea, cough CARDIOVASCULAR: Negative chest pain, palpitations GASTROINTESTINAL: Negative vomiting, nausea, abdominal pain : Negative dysuria, frequency, hematuria MUSCULOSKELETAL: Moves muscle or bony pain SKIN: Negative rash, skin lesions, positive skin injury NEUROLOGIC: Negative weakness, numbness ROS Unobtainable: All systems reviewed & are unremarkable except as noted in HPI and below Patient History Medical History (Updated 10/14/24 @ 11:04 by Neftaly Littlejohn MD) Aortic stenosis Transaminitis Chronic renal failure, stage 3a Mixed hyperlipidemia (01/10/16) Chronic obstructive pulmonary disease Essential hypertension Diverticulosis of large intestine (06/13/11) Impaired glucose tolerance (06/13/11) Surgical History (Updated 01/25/18 @ 13:21 by Shaina Conner) History of left salpingo-oophorectomy History of right salpingo-oophorectomy Status post appendectomy Family History (Updated 01/25/18 @ 13:23 by Shaina Conner) Other Colon cancer Social History marital status: number of children: 5 household members: children lives independently: Yes caregiver/support person: No housing: house pets and animals: Yes education level: college occupational status: other (Retired.) Previous occupational history: Mental Health Counselor tk/episcopalian: [employer] travel history: over 6 months ago ([place]) leisure activities: reading, volunteer work and other (Speaks at classes.) Smoking Status: Former smoker Tobacco: How many years used: 25 Smokeless tobacco user: other (Cigarettes) quit status: quit date established (1979) second hand exposure: No alcohol intake: former (Quit in 1985, but now has 2 beers daily) substance use type: does not use alcohol intake frequency: 3 or more drinks per day Exam Narrative Exam Narrative: GENERAL: in no distress, not toxic not dyspneic, HEAD: Normocephalic. Nontender face. Small contusion to occiput. No crepitus or step-off. Skin is intact.Small 2 cm occipital scalp contusion with tenderness but no crepitus or step-off. EYES: Pupils equal round ENT: Mucous membranes moist. NECK: Trachea midline. CARDIOVASCULAR: Regular rate and rhythm RESPIRATORY: Clear to auscultation. Breath sounds equal bilaterally. No wheezes, rales, or rhonchi. GASTROINTESTINAL: Abdomen soft, non-tender EXTREMITIES: No gross deformities. No midline tenderness step-off of the cervical spine. Thoracic spine or lumbar spine Examination left lower extremity leg warm soft pink. Able to flex and extend at the knee without difficulty. Mild tenderness to the lateral surface of the knee. Pain but no laxity of the left knee with anterior posterior medial lateral and rotational stress of the left leg. Strong standard tibial pulse. Strong dorsal pedal pulse, foot warm soft and pink. Light touch intact to leg and foot. BACK: No flank tenderness. NEURO: AOx4. Clear speech, moving all 4 extremities. No facial droop. SKIN: Warm and dry PSYCH: Not anxious, is cooperative Initial Vital Signs Initial Vital Signs: Vital Signs Blood Pressure 172/74 H 10/14/24 09:30 Course Orders Ordered: Discontinued Medications Ibuprofen (Ibuprofen 400 Mg Tablet) 400 mg PO NOW ONE Stop: 10/14/24 09:32 Last Admin: 10/14/24 09:37 Dose: 400 mg Documented By: Vital Signs Vital signs: Vital Signs - 8 hr 10/14/24 09:30 10/14/24 09:31 10/14/24 09:40 Temperature 97.4 F L Pulse Rate 83 85 Respiratory Rate 16 Blood Pressure 172/74 H 147/85 H Pulse Oximetry 99 98 Oxygen Delivery Method Room Air 10/14/24 09:57 10/14/24 09:57 10/14/24 10:00 Temperature Pulse Rate 84 Respiratory Rate Blood Pressure 167/70 H 156/69 H Pulse Oximetry 86 L Oxygen Delivery Method 10/14/24 10:00 10/14/24 10:30 10/14/24 10:30 Temperature Pulse Rate 83 88 Respiratory Rate Blood Pressure 173/76 H Pulse Oximetry 98 97 Oxygen Delivery Method 10/14/24 11:00 10/14/24 11:00 Temperature Pulse Rate 85 Respiratory Rate Blood Pressure 167/76 H Pulse Oximetry 97 Oxygen Delivery Method MDM - Fall Imaging Data Extremity x-ray #1: Radiologist's Impression: [address] [address] XRay Report Signed Patient: Eliza Anthony I MR#: [id number] : 1935 Acct:[id number] Age/Sex: 89 / F Date of Service: 10/14/24 Loc: ED Accession Number: [id number] Procedure: XR knee LT 3V Ordering Provider: Neftaly Littlejohn MD PROCEDURE: XR KNEE LT 3V INDICATIONS: Pain/injury TECHNIQUE: 3 views of the knee were acquired. COMPARISON: None. FINDINGS: Bones: No fractures or dislocations. Moderate to severe tricompartmental osteoarthritis is seen more notably in lateral femoral tibial compartment and lateral portion of patellofemoral compartment. Slight lateral subluxation of patella. No suspicious bony lesions. Soft tissues: Small to moderate suprapatellar joint effusion. No suspicious soft tissue calcifications. IMPRESSION: No acute left knee fracture or dislocation. 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 Small to moderate suprapatellar joint effusion. Dictated by: Higinio Stewart M.D. on 10/14/2024 at 9:58 Approved by: Higinio Stewart M.D. on 10/14/2024 at 10:01 CT scan - head: Radiologist's Impression: [address] [address] [address] Scan Report Signed Patient: Eliza Anthony I MR#: [id number] : 1935 Acct:[id number] Age/Sex: 89 / F Date of Service: 10/14/24 Loc: ED Accession Number: [id number] Procedure: CT head/brain wo con Ordering Provider: Neftaly Littlejohn MD PROCEDURE: CT HEAD/BRAIN WO CON INDICATIONS: Fall/pain TECHNIQUE: Noncontrast 4.5 mm thick angled axial sections acquired from the foramen magnum to the vertex, with coronal and sagittal reformats. For radiation dose reduction, the following was used: automated exposure control, adjustment of mA and/or kV according to patient size. COMPARISON: [facility], CT, CT HEAD/BRAIN WO CON, 01/21/2024, 22:46. FINDINGS: Image quality: Diagnostic. CSF spaces: Basal cisterns are patent. No extra-axial fluid collections. The ventricles are symmetric in size and shape. Brain: No intracranial bleeds or mass effect. There is cerebral volume loss, with resultant ventricular and sulcal prominence. There are periventricular and deep white matter chronic small vessel ischemic changes. There is intracranial internal carotid artery atherosclerosis. Skull and face: Calvarium and visualized facial bones appear intact, without suspicious lesions. Sinuses: Visualized sinuses and mastoids are clear. IMPRESSION: No acute intracranial pathology. Dictated by: Higinio Stewart M.D. on 10/14/2024 at 10:06 Approved by: Higinio Stewart M.D. on 10/14/2024 at 10:07 CT - cervical spine: Radiologist's Impression: [place] [address] CT Scan Report Signed Patient: Eliza Anthony I MR#: [id number] : 1935 Acct:[id number] Age/Sex: 89 / F Date of Service: 10/14/24 Loc: ED Accession Number: [id number] Procedure: CT cervical spine wo con Ordering Provider: Neftaly Littlejohn MD PROCEDURE: CT CERVICAL SPINE WO CON INDICATIONS: Fall/pain TECHNIQUE: Noncontrast 3 mm thick sections acquired from the skull base to the T4 level. Sagittal and coronal reformats were then constructed. For radiation dose reduction, the following was used: automated exposure control, adjustment of mA and/or kV according to patient size. COMPARISON: [facility], CT, CT CERVICAL SPINE WO CON, 01/21/2024, 18:43. FINDINGS: Image quality: Excellent. Bones: No fractures or dislocations. Degenerative endplate changes and loss of disc height throughout cervical spine is seen most notably at C5-6 level. Bilateral uncovertebral hypertrophic changes also seen. There is [id number] central canal stenosis and bilateral neural foraminal narrowing more notably at C4-5 and C5-6 levels. Visualized superior ribs are intact. Soft tissues: Prevertebral soft tissues are normal in thickness. No paravertebral hematomas. No apical pneumothoraces. IMPRESSION: 1. No displaced fracture or traumatic subluxation. 2. Multilevel spondylitic changes throughout cervical spine. Dictated by: Higinio Stewart M.D. on 10/14/2024 at 10:07 Approved by: Higinio Stewart M.D. on 10/14/2024 at 10:11 [facility] Narrative Medical decision making narrative: Patient here with daughter. Had witnessed fall this morning. Patient was getting ready for a walk and their pet dog was very excited and bumped into her lateral left knee causing patient to follow up backwards. Hitting her head. Patient is not on blood thinners other than aspirin. No loss of consciousness no nausea or vomiting no vision changes. Patient is able stand and bear weight. Parents removed. After history and exam, exam is reassuring, no blood work indicated. CT head CT cervical spine x-ray left knee will be ordered. Ice pack and ibuprofen MDM Medical records reviewed: No recent visit for this complaint Differential considered: Includes but not limited to knee strain sprain contusion fracture dislocation, scalp contusion skull fracture intracranial bleed Imaging studies independently reviewed: CT head cervical spine x-ray left knee no acute finding. Consultations: None indicated at this time Re-evaluations: 11:02 a.m.. Updated patient and daughter results. She states she is feeling much better after ice pack and ibuprofen. Reviewed results with patient and daughter, arthritis seen in the knee. Referral for Orthopedics who will be provided. Head injuries instructions provided. Return precautions reviewed. They desire discharge home. Patient does do better with crutches provided. Instructed patient and daughter return for repeat x-ray of the knee or CT scan or MRI if not improving 3- 7 days. Discussion: Appropriate for discharge home exam is reassuring. Return precautions reviewed with patient and daughter. Pain is controlled. Patient is ambulatory at time of discharge. No splints or crutches indicated or wheelchair or walker or cane needed at this time. Diagnosis: Left knee strain scalp contusion Discharge Plan Departure Patient Disposition: Home Clinical Impression: Strain of left knee Qualifiers: Encounter type: initial encounter Qualified Code(s): S86.912A - Strain of unspecified muscle(s) and tendon(s) at lower leg level, left leg, initial encounter Contusion of scalp Qualifiers: Encounter type: initial encounter Qualified Code(s): S00.03XA - Contusion of scalp, initial encounter Instructions: DI for Contusion, DI for Closed Head Injury Activity Restrictions/Additional Instructions: Your exam and x-ray/CT scan imaging are reassuring today. It will take time for the pain to improve. Continue ice pack 20 minutes at a time as needed for pain and swelling to injured areas. May continue Tylenol or ibuprofen for pain. Please see family doctor in a week for re-evaluation. Please call provided orthopedic office for re-evaluation I have your knee arthritis and injury. Return if worse if any questions or concerns Prescriptions: No Action simvastatin 20 mg tablet 20 mg PO DAILY Qty: 90 2RF nifedipine 60 mg tablet extended release 60 mg PO DAILY Qty: 90 1RF aspirin 81 mg tablet,delayed release (DR/EC) 81 mg PO DAILY Referrals: Ezequiel Valdez MD [Primary Care Provider] - Gilbert Desir MD [Physician] - Stand Alone Forms: Patient Portal/API/Survey
[2024-10-14] MEDS: IBUPROFEN 400 MG TABLET PO (09:37)
--- NOTE | 2024-10-14 09:45 | PC.NURSE ---
Pt not able to put weight on Left knee. Able to transfer to orthopaedic hospital on right leg. Reports pain to back of head. Small lump palpated. No blood noted.
== END 2024-10-14 11:33 | disposition home or self-care (01) ==
PROVIDERS: Emergency Provider Emergency Medicine; PCP Internal Medicine
DX: S00.03XA Contusion of scalp, initial encounter (principal); S86.912A Strain of unspecified muscle(s) and tendon(s) at lower leg level, left leg, initial encounter; W18.30XA Fall on same level, unspecified, initial encounter
CPT/HCPCS: 70450; 72125; 73562; 99283; 99284

== ENCOUNTER → 2024-11-30 07:09 | Outpatient (CLI) | payer MEDICARE, OTHER, SELFPAY ==
--- NOTE | 2024-11-30 07:13 | DI.ECHO.S_ITS ---
[facility] : : [address] : : [place] : : [id number] : : Phone: [phone] Echocardiogram Report + + :Name: EMY KOENIG I Study Date: 11/30/2024 Height: 59 in : :[facility] ReadingLocation: Weight: 114 lb : : Gender: Female BSA: 1.5 m2 : :: 1935 Age: 89 yrs BP: 141/70 mmHg: :Reason For Study: MURMUR : :Ordering Physician: HOLDEN, : :GRETCHEN Performed By: Eli Stoddard : :Referring: GRETCHEN HATCH : + + Interpretation Summary 1. The left ventricular contractility is normal. Estimated ejection fraction is greater than 65% with no segmental wall motion abnormalities. Mild to moderate concentric LVH. Grade 1 diastolic dysfunction. 2. The right ventricular contractility is normal. 3. The left atrium is dilated. All other cardiac chambers are of normal size. 4. Moderate mitral valvular stenosis with mean gradient 5.2 mmHg. 5. Moderate to severe aortic valvular stenosis with peak gradient of 3.98 m/s. Mean gradient of 37.3 mmHg. Dimensionless index of 0.32. 6. Mild tricuspid regurgitation with estimated pulmonary systolic artery pressures of 30 mmHg. 7. No obvious intracardiac shunts. 8. No obvious intracardiac masses nor thrombi. 9. No hemodynamically significant pericardial effusion. 10. Low right-sided filling pressures. Conclusion: Normal biventricular systolic function with moderate to severe aortic and mitral valvular stenoses. When compared with previous echocardiogram, there appears to be a mild increase in the degree of aortic and mitral valvular stenoses. Procedure: A two-dimensional transthoracic echocardiogram with color flow and Doppler was performed. The study quality was technically adequate. Comparison is made with the echocardiogram of 01/28/2024. The patient was in sinus rhythm with heart rates between 70-90 bpm during the exam. Left Ventricle: The left ventricle is normal in size. There is mild-moderate concentric left ventricular hypertrophy. The ejection fraction is estimated to be 65-70%. Right Ventricle: The right ventricle is normal in size and function. Atria: The left atrium is severely dilated. The right atrium is normal in size. The interatrial septum grossly appears intact with no obvious evidence for an atrial septal defect. Mitral Valve: There is moderate to severe mitral annular calcification. The mitral valve leaflets are mildly calcified. The mitral valve mean gradient is 5.2 mmHg. There is trace mitral regurgitation. Aortic Valve: The aortic valve is moderately calcified. There is moderately reduced leaflet mobility. The peak aortic velocity is 3.98 m/sec. The aortic valve mean gradient is 37 mmHg. The calculated aortic valve area is 1.0 cm2. There is trace aortic regurgitation. Tricuspid Valve: The tricuspid valve leaflets are thin and pliable. There is mild tricuspid regurgitation. The right ventricular systolic pressure is estimated to be at least 30 mmHg based on an estimated right atrial pressure of 3 mm Hg. Pulmonic Valve: The pulmonic valve leaflets are thin and pliable; valve motion is normal. There is no pulmonic valvular regurgitation. Great Vessels: The aortic root is normal size. The ascending aorta could not be visualized. The IVC is of normal diameter and collapses greater than 50% with a sniff. This suggests a low right atrial pressure of 3 mm Hg. Pericardium/ Pleura There is no pericardial effusion. There is no pleural effusion. MMode/2D Measurements & Calculations LVIDd: 4.2 cm LVOT diam: 2.0 cm LVIDs: 2.6 cm Ao root diam: 3.0 cm FS: 39.1 % Ao Arch Diam (Prox Trans): 2.7 cm IVSd: 1.3 cm LVPWd: 1.0 cm LV lai. diameter/BSA (cm/m^2): 2.9 LV sys. diameter/BSA (cm/m^2): 1.8 LA A2 area: 24.3 cm2 RA long axis: 5.0 cm LA A4 area: 19.9 cm2 RA area: 13.4 cm2 LA length (vol): 5.5 cm RA vol: 30.7 ml LA vol: 74.9 ml RA : 21.2 ml/m2 LA vol index: 51.6 ml/m2 IVC diam: 1.1 cm RVD1 (basal): 2.9 cm RVD2 (mid): 3.0 cm TAPSE: 1.9 cm Doppler Measurements & Calculations Ao V2 max: 398.1 cm/sec LVOT Max Daniel: 123.5 cm/sec Ao V2 mean: 286.0 cm/sec LV V1 max P.1 mmHg Ao max P.7 mmHg LV V1 VTI: 28.7 cm Ao mean P.3 mmHg JAILENE(I,D): 1.0 cm2 Ao V2 VTI: 90.2 cm JAILENE(V,D): 1.00 cm2 sev ratio: 0.32 JAILENE indexed to BSA (cm^2/m^2): 0.70 MV E max daniel: 112.8 cm/sec TR max daniel: 259.7 cm/sec MV A max daniel: 166.6 cm/sec TR max P.0 mmHg MV E/A: 0.68 PA V2 max: 108.2 cm/sec Med Peak E' Daniel: 3.4 cm/sec PA V2 mean: 78.2 cm/sec E/E' med: 32.8 PA mean P.7 mmHg Lat Peak E' Daniel: 4.1 cm/sec PA pr(Accel): 43.9 mmHg E/E' lat: 27.8 E/e' average: 30.3 MV dec time: 0.49 sec MVA(VTI): 2.1 cm2 MV V2 mean: 105.5 cm/sec SV(LVOT): 92.3 ml MV mean P.2 mmHg MV V2 VTI: 44.4 cm Reading Physician:ANIKA
== END ==
LOC: ECHO 07:12
PROVIDERS: PCP Internal Medicine; Referring Provider Family Medicine; Visit Provider Family Medicine
DX: I08.3 Combined rheumatic disorders of mitral, aortic and tricuspid valves (principal)
CPT/HCPCS: 93306

== ENCOUNTER → 2024-12-02 11:17 | Outpatient (CLI) | payer MEDICARE, OTHER, SELFPAY ==
--- NOTE | 2024-12-02 11:19 | DI.RAD.S_ITS ---
PROCEDURE: XR DEXA AXIAL SKELETON INDICATIONS: AGE RELATED OSTEOPOROSIS COMPARISON: None. FINDINGS: Lumbar Spine: Bone mineral density 0.801 g/cm2, T score -2.5. Left Femoral Neck: Bone mineral density 0.492 g/cm2, T score -3.2. Left Hip: Bone mineral density 0.528 g/cm2, T score -3.4. Fracture Risk Calculation (when applicable): FRAX score not reported due to T-score less than -2.5. (T score greater or equal to -1.0 to: NORMAL) (T score from -1.1 to -2.4: OSTEOPENIA) (T score less than or equal to -2.5: OSTEOPOROSIS) IMPRESSION: By WHO criteria, patient has osteoporosis. Follow-up guidelines as follows: Osteoporosis: Consider a repeat DEXA and Vertebral Fracture Assessment (VFA) exam in 2 years or sooner if medically necessary, to reassess this patient's status. Osteopenia: Consider a repeat DEXA in 2-3 years to reassess this patient's status, or if there is a new clinical indication. Normal: Consider a repeat DEXA in 5 years or sooner, or if there is a new clinical indication. All treatment decisions require clinical judgment and consideration of individual patient factors, including patient preferences, comorbidities, previous drug use, risk factors not captured in the FRAX model (e.g., frailty, falls, vitamin D deficiency, increased bone turnover, interval significant decline in bone density ) and possible under- or over-estimation of fracture risk by FRAX. In addition, the NOF Guide recommends that FDA-approved medical therapies be considered in postmenopausal women and men age >= 50 years with a: * Hip or vertebral (clinical or morphometric) fracture * T-score of <=-2.5 at the spine or hip * Ten-year fracture probability by FRAX of >= 3% for hip fracture or >=20% for major osteoporotic fracture. Approved by: Jaiden Kelly M.D. on 12/02/2024 at 16:36
== END ==
LOC: RAD 11:18
PROVIDERS: PCP Internal Medicine; Referring Provider Family Medicine; Visit Provider Family Medicine
DX: M81.0 Age-related osteoporosis without current pathological fracture (principal)
CPT/HCPCS: 77080

== ENCOUNTER → 2025-03-07 11:26 | Outpatient (CLI) | payer MEDICARE, OTHER, SELFPAY ==
[2025-03-07 12:10] LABS: Add Manual Diff / Slide Review NO; Hematocrit 38.0 % (36-46); Hemoglobin 12.7 g/dL (12.0-16.0); Lymphocytes Absolute Auto 1300 /uL (1100-4500); Mean Corpuscular HGB Conc 33.5 % (30-36); Mean Corpuscular Hemoglobin 28.5 PG (26-34); Mean Corpuscular Volume 85.1 fL (80-100); Platelet Count 250 X10^3/uL (150-400)
[2025-03-07 12:30] LABS: Alanine Aminotransferase 60 IU/L (<35); Albumin 4.4 g/dL (3.5-5.0); Albumin Globulin Ratio 1.0 (1.0-2.8); Alkaline Phosphatase 95 U/L (38-126); Blood Urea Nitrogen 22 mg/dL (7-17); Calcium 9.4 mg/dL (8.4-10.2); Carbon Dioxide 25 mmol/L (22-32); Chloride 101 mmol/L (98-107); Estimated Glomerular Filt Rate 53 mL/min (>60); Globulin 4.4 g/dL (1.7-4.1); Glucose 120 mg/dL (70-99); HEMOLYSIS < 15 (0-50); Iron 71 ug/dL (37-170); Potassium 4.4 mmol/L (3.4-5.1); Sodium 138 mmol/L (137-145); Total Protein 8.8 g/dL (6.3-8.2)
[2025-03-07 12:42] LABS: Percent Iron Saturation 33 % (15-50); Total Iron Binding Capacity 214 ug/dL (265-497); Transferrin 172 mg/dL (206-381)
[2025-03-07 13:00] LABS: TSH w/ Reflex to FT4 1.45 uIU/mL (0.47-4.68)
[2025-03-07 13:36] LABS: Folate 10.7 ng/mL (2.76-20.0); Vitamin B12 423 pg/mL (239-931)
== END ==
PROVIDERS: PCP Internal Medicine; Referring Provider Nurse Practitioner Family; Visit Provider Nurse Practitioner Family
DX: R42 Dizziness and giddiness (principal)
CPT/HCPCS: 36415; 80053; 82607; 82746; 83540; 83550; 84443; 85025